=== PATIENT | male | born 1980 | race American Indian/Alaskan Native ===

== ENCOUNTER 2018-11-08 10:25 | Emergency (ER) | payer SELFPAY ==
--- NOTE | 2018-11-08 11:46 | XRay Report ---
Left hand 4 views 1100 INDICATION: Injury with lawnmower blade Bandaging is seen on the medial hand. Comminuted fracture is seen at the laceration site indicating a compound fracture of the distal fifth metacarpal. The medial aspect of the metacarpal head and neck are quite irregular with multiple small fragments seen. Fracture lines extend proximally into the dis ursula shaft area. There is mild lateral and slight ventral angulation. No dislocation is seen. No defin ite fractures noted of the proximal phalanx of the little finger and no other fractures are identifie d. Tiny density seen in the soft tissues medial to the distal fifth metacarpal appear mostly to repre sent tiny fracture fragments with no definite metallic density seen though one small density more pro ximally lateral to the distal shaft is indeterminate. IMPRESSION: Comminuted compound fifth metacarpal fracture as described Signer Name: Jaleel Smart MD Signed: 11/08/2018 11:42 AM Workstation Name: [id number]
[2018-11-08] MEDS ORDERED: ZOFRAN IV ONE (13:04)
[2018-11-08] MEDS ORDERED: MORPHINE IV ONE (13:04)
[2018-11-08] MEDS ORDERED: NACL 0.9% 1000 ML 1,000 ML IV ONE (13:04)
[2018-11-08] MEDS ORDERED: CLEOCIN 900 MG/50 mL 900 MG/50 ML BAG IV ONE (13:04)
[2018-11-08] MEDS ORDERED: BOOSTRIX IM ONE (14:15)
--- NOTE | 2018-11-08 14:19 | Emergency Department Report ---
[place] Lac[place] [facility] Chief Complaint: Extremity Injury, Upper Stated Complaint: HAND LAC LAWNMOWER BLADE Time Seen by Provider: 11/08/18 12:35 Occurred When: Before Yesterday Location: Upper Extremity Severity: moderate Tetanus Status: Not up to Date Laceration Symptoms: Yes Pain, No Foreign Body Sensation, No Numbness, No Weakness Other History: This is a 38-year-old male nontoxic, well nourished in appearance, no acute signs of distress presents to the ED with c/o of left hand laceration and that happened 2 days ago from a lawnmower. Patient stated that he went to his neighbor's house after laceration which he stated that he was sutured and impacted. Due to swelling and redness and his neighbor has removed the stitches and patient came to the ED for further evaulation. Patient denies decreased sensation or range of motion. Patient stated bleeding is under control. Denies any numbness, tingling, fever, chills, nausea, vomiting, chest pain, shortness of breath, headache or stiff neck. Patient states allergies to penicillin with no significant past medical history. Patient denies being up-to-date with tetanus. ED Review of Systems ROS: Stated complaint: HAND LAC LAWNMOWER BLADE Other details as noted in HPI Constitutional: denies: chills, fever Eyes: denies: eye pain, eye discharge, vision change ENT: denies: ear pain, throat pain Respiratory: denies: cough, shortness of breath, wheezing Cardiovascular: denies: chest pain, palpitations Endocrine: no symptoms reported Gastrointestinal: denies: abdominal pain, nausea, diarrhea Genitourinary: denies: urgency, dysuria Musculoskeletal: denies: back pain, joint swelling, arthralgia Skin: denies: rash, lesions Neurological: denies: headache, weakness, paresthesias Psychiatric: denies: anxiety, depression Hematological/Lymphatic: denies: easy bleeding, easy bruising ED Past Medical Hx - Past Medical History Previous Medical History?: No - Surgical History Past Surgical History?: No - Social History Smoking Status: Current Every Day Smoker Laceration Physical Exam - Exam General: Vital signs noted. No distress. Alert and acting appropriately. Left hand redness and swelling with warm to touch. Wound Length (cm): 5 Laceration Location: Upper Extremity Laceration Exam: Yes Foreign Body, Yes Normal Distal CMS, No Exposed Tendon, Vessel, or Nerve, No Tendon Injury ED Course Vital Signs 11/08/18 11/08/18 11/08/18 10:28 13:20 13:25 Temperature 98.1 F Pulse Rate 75 Respiratory 20 15 16 Rate Blood Pressure 124/85 O2 Sat by Pulse 98 Oximetry - Reevaluation(s) Reevaluation #1: 11/08/18 14:20 Patient is speaking in full sentences with no signs of distress noted. - Consultations Consultation #1: 11/08/18 14:20 Patient has been consulted with Dr. Salguero ([facility] hand surgery) about patient history, physical exam, and x-ray results and accepts patient to services for further evaluation and treatment. ED Medical Decision Making - Medical Decision Making This is a 38-year-old male that presents with left hand cellulitis with laceration. Patient is currently stable and was examined by me. Patient is accepted by Dr. Salguero for further evaluation and treatment. Patient did receive clindamycin IV due to allergies to penicillin. Patient is transferred to [facility]. At time of transfere, the patient does not seem toxic or ill in appearance. No acute signs of distress noted. Patient agrees to treatment plan of care. No further questions noted by the patient. Critical care attestation.: If time is entered above; I have spent that time in minutes in the direct care of this critically ill patient, excluding procedure time. ED Disposition Clinical Impression: Cellulitis of left hand, Laceration Nondisplaced fracture of fifth right metatarsal bone Qualifiers: Encounter type: initial encounter Fracture type: closed Qualified Code(s): S92.354A - Nondisplaced fracture of fifth metatarsal bone, right foot, initial encounter for closed fracture Disposition: DC/TX-70 ANOTHER TYPE HLTHCARE Is pt being admited?: No Condition: Stable
[2018-11-08 14:20] VITALS: BP 114/71
== END 2018-11-08 15:51 | disposition other institution (70) ==
LOC: ED 10:25
DX: S92.354A Nondisplaced fracture of fifth metatarsal bone, right foot, initial encounter for closed fracture (principal); L03.114 Cellulitis of left upper limb; F17.200 Nicotine dependence, unspecified, uncomplicated; Z88.0 Allergy status to penicillin; X58.XXXA Exposure to other specified factors, initial encounter; Y93.89 Activity, other specified; Y92.89 Other specified places as the place of occurrence of the external cause; Y99.8 Other external cause status
CPT/HCPCS: 73130; 90715; 96365; 96375; 99285; J2270; J2405; J7030